=== PATIENT | male | born 1945 | race Caucasian/White ===

== ENCOUNTER 2018-04-06 12:56 | Outpatient (CLI) | payer SELFPAY ==
[~2018-04-06] VITALS: Ht 180.3 cm; Wt 87.7 kg
--- NOTE | ~2018-04-06 | HEMODYNAMI ---
PATIENT:ASHLEY NEVES MEDICAL RECORD: [id number] : 43 [id number] ADMISSION DATE: 04/06/18 Generatedon:04/06/201815:07 Patient name: ASHLEY NEVES Patient #: [id number] SSN: : Date of study: 04/06/2018 Page: Of Hemodynamic Procedure Report Patient Data Patient Demographics Procedure consent was obtained First Name: ASHLEY Gender: Male Last Name: PURA : 1945 Patient #: [id number] Age: 72 year(s) Race: Unknown Additional ID: [id number] Admission Admission Data Admission Date: 04/06/2018 Admission Time: 12:56 Admit Source: Emergency department Procedure Procedure Types Cath Procedure Diagnostic Procedure [facility] w/Coronaries PCI Procedure Coronary Stent Coronary Stent Initial Procedure Description Procedure Date Procedure Date: 04/06/2018 Procedure Start Time: 14:46 Procedure End Time: 15:01 Procedure Staff Name Function Oliverio Drake MD Performing Physician Lefty Gallo RT Monitor Edison Moyer RT Scrub Олег Clement RN Nurse Procedure Data Cath Procedure Fluoroscopy Diagnostic fluoroscopy Total fluoroscopy Time: 2.3 time: 2.3 min min Diagnostic fluoroscopy Total fluoroscopy dose: dose: 235.66 mGy 235.66 mGy Contrast Material Contrast Material Type Amount (ml) Isovue 300 72 Entry Location Entry Primary Successful Side Size Upsize Upsize Entry Closure Nicole ccessful Closure Location (Fr) 1 (Fr) 2 (Fr) Remarks Device Remarks Femoral Right 6 Fr Mechanical artery Short Compression Diagnostic catheters Device Type Used For End Catheter Placement DIAGNOSTIC [place] 110cm 5 LV Angiography Fr catheter ([id number]) Procedure Complications No complications Procedure Medications Medication Administration Route Dosage Oxygen etCO2 Nasal cannula 2 l/min Heparin Flush Bag added to field 2 bags (1000units/500ml NS) 0.9% NaCl I.V. 100 ml/hr Radial Cocktail added to field 1 syringe (Verapomil 2mg/Nitro 400mcg/Heparin 1500units) Fentanyl I.V. 50 mcg Versed I.V. 1 mg Radial Cocktail I.A. 1 syringe (Verapomil 2mg/Nitro 400mcg/Heparin 1500units) Benadryl I.V. 50 mg Fentanyl I.V. 50 mcg Versed I.V. 1 mg Heparin Bolus I.V. 4000 units Integrilin (Bolus I.V. 7.9 ml 2mg/ml) Integrilin (Bolus wasted 2.1 ml 2mg/ml) Hemodynamics Rest Heart Rate: 67 (bpm) Snapshots Pre Cath Intra NCS Post Cath Vital Signs Time Heart Resp SPO2 etCO2 NIBP (mmHg) Rhythm Pain Sedation Rate (ipm) (%) (mmHg) Status Level (bpm) 14:32:42 67 16 97 0 182/81(146) NSR 0 (11) 10(A) , No pain 14:37:06 66 16 96 0 176/85(139) NSR 0 (11) 10(A) , No pain 14:41:30 66 17 96 32.2 173/80(134) NSR 0 (11) 10(A) , No pain 14:45:56 65 17 97 30.7 164/78(144) NSR 0 (11) 9(A) , No pain 14:50:13 68 17 97 33 131/72(105) NSR 0 (11) 9(A) , No pain 14:54:31 66 16 88 0 136/68(116) NSR 0 (11) 9(A) , No pain 14:58:49 64 16 94 0.7 148/71(117) NSR 0 (11) 9(A) , No pain 15:02:28 63 17 92 0 134/73(111) NSR 0 (11) 9(A) , No pain Medications Time Medication Route Dose Verified Delivered Reason Not es Effectiveness by by 14:44:01 Oxygen etCO2 2 l/min Oliverio Denney Per physician Nasal Vidal Clement RN cannula 14:44:12 Heparin Flush added 2 bags Oliverio Denney used for Bag to Vidal Clement decorating supervisor (1000units/500ml field NS) 14:44:21 0.9% NaCl I.V. 100 Oliverio Denney Per physician ml/hr Vidal Clement RN 14:44:29 Radial Cocktail added 1 Oliverio Denney used for (Verapomil to syringe Vidal Clement RN procedure 2mg/Nitro field 400mcg/Heparin 1500units) 14:44:36 Fentanyl I.V. 50 mcg Oliverio Denney for sedation Vidal Clement RN 14:44:43 Versed I.V. 1 mg Oliverio Suarezy for sedation Vidal Clement RN 14:47:08 Radial Cocktail I.A. 1 Oliverio Duron for (Verapomil syringe Vidal Drake MD vasodilation 2mg/Nitro 400mcg/Heparin 1500units) 14:48:09 Benadryl I.V. 50 mg Oliverio Denney Per physician Vidal Clement RN 14:48:18 Fentanyl I.V. 50 mcg Oliverio Denney for sedation Vidal Clement RN 14:48:23 Versed I.V. 1 mg Oliverio Denney for sedation Vidal Clement RN 14:54:05 Heparin Bolus I.V. 4000 Oliverio Denney for units Vidal Clement RN anticoagulation 14:54:19 Integrilin I.V. 7.9 ml Oliverio Denney for (Bolus 2mg/ml) Vidal Clement RN antiplatelet therapy 14:55:47 Integrilin wasted 2.1 ml Oliverio Denney for (Bolus 2mg/ml) Vidal Clement RN antiplatelet therapy Procedure Log Time Note 13:47:46 Informed consent obtained and on chart 13:47:49 Admit Source: Emergency department 13:48:09 Diagnostic Cath status Elective 13:56:22 Lefty Suit RT(R) sent for patient. Start room use. 14:24:05 Patient received from ED to CCL 3 Alert and oriented. Tansferred to table in Supine position. 14:24:06 Warm blankets applied, and elenita hugger turned on for patient comfort. 14:24:07 Correct patient and procedure confirmed by team. 14:24:08 ECG and BP/O2 sat monitors applied to patient. 14:24:08 Pre-procedure instructions explained to patient. 14:24:09 Pre-op teaching completed and patient verbalized understanding. 14:24:11 Family in waiting room. 14:31:24 Vital chart was started 14:37:10 Baseline sample Acquired. 14:37:13 Rhythm: sinus rhythm 14:37:14 Full Disclosure recording started 14:37:18 Patient NPO since Breakfast. 14:37:27 Is the patient allergic to Iodine/contrast media? No. 14:37:34 Is patient on blood thinner?No 14:37:37 Patient diabetic? Yes. 14:37:44 ----Pre-sedation anethsthesia assessment.---- 14:37:46 Previous problem with sedation/anesthesia? No ? 14:37:48 Snore? Yes 14:37:49 Sleep apnea? Yes 14:37:50 Deviated septum? No 14:37:52 Opens mouth fully? Yes 14:37:54 Sticks out tongue? Yes 14:37:56 Airway obstruction? No ? 14:38:00 Dentures? No ? 14:38:02 Pre procedure: right dorsailis pedis pulse 2+ Normal; easily identifiable; not easily obliterated 14:38:06 Modified Aneudy's test Ulnar < 7 seconds 14:42:04 Patient pain scale 0/10 ?. 14:42:11 IV patent on arrival in left antecubital with 0.9% NaCl at 10ml/hr. 14:42:19 Lab results completed and on chart. 14:42:20 Lab results completed and on chart. 14:42:26 Right Radial & Right Groin area was prepped with chlora-prep and draped in sterile fashion 14:42:27 Alarms reviewed by R. N. 14:42:28 Sharps counted by scrub and verified by R.N. 14:42:49 --------ALL STOP TIME OUT------ 14:42:50 Final Timeout: patient, procedure, and site verified with staff and physician. All members of the team are in agreement. 14:42:52 Right Radial & Right Groin site verified by team. 14:42:55 Physical assessment completed. ASA score P 2 - A patient with mild systemic disease as per Oliverio Drake MD. 14:43:01 Sedation plan: IV Moderate Sedation Medication:Versed, Fentanyl 14:43:04 Use device set Radial Dx or PCI 14:43:05 ACIST Syringe (31507) opened to sterile field. 14:43:05 Medline Cath Pack ([id number]) opened to sterile field. 14:43:06 Bag Decanter (2002S) opened to sterile field. 14:43:06 DIAGNOSTIC WIRE .035 260cm J wire (032862) opened to sterile field. 14:43:06 ACIST Hand Control (49807) opened to sterile field. 14:43:07 ACIST Manifold (36434) opened to sterile field. 14:43:07 Tegaderm 4 x 4 (1626W) opened to sterile field. 14:43:08 MBrace Wrist Support (805278817) opened to sterile field. 14:43:09 NEEDLE Cook 21G 4cm Radial (Q28735) opened to sterile field. 14:43:11 TR BAND Standard (TSH67EUL) opened to sterile field. 14:43:13 SHEATH 6Fr Prelude Radial ([id number]) opened to sterile field. 14:44:01 Oxygen 2 l/min etCO2 Nasal cannula was administered by Олег Clement RN; Per physician; 14:44:12 Heparin Flush Bag (1000units/500ml NS) 2 bags added to field was administered by Олег Clement RN; used for procedure; 14:44:21 0.9% NaCl 100 ml/hr I.V. was administered by Олег Clement RN; Per physician; 14:44:29 Radial Cocktail (Verapomil 2mg/Nitro 400mcg/Heparin 1500units) 1 syringe added to field was administered by Олег Clement RN; used for procedure; 14:44:36 Fentanyl 50 mcg I.V. was administered by Олег Clement RN; for sedation; 14:44:43 Versed 1 mg I.V. was administered by Олег Clement RN; for sedation; 14:45:48 Procedure started. 14:46:21 Local anesthetic to right radial artery with Lidocaine 2% by Oliverio Drake MD.INITIAL ACCESS ONLY 14:46:30 A 6 Fr Short sheath was inserted into the Right Femoral artery 14:46:45 Zero performed for pressure channel P1 14:47:08 Radial Cocktail (Verapomil 2mg/Nitro 400mcg/Heparin 1500units) 1 syringe I.A. was administered by Oliverio Drake MD; for vasodilation; 14:48:00 A DIAGNOSTIC [place] 110cm 5 Fr catheter (344787) was advanced over the wire and used for LV Angiography. 14:48:01 LV angiography performed. 14:48:09 Benadryl 50 mg I.V. was administered by Олег Clement RN; Per physician; 14:48:13 LV gram done using PLASCENCIA 14:48:18 Fentanyl 50 mcg I.V. was administered by Олег Clement RN; for sedation; 14:48:23 Versed 1 mg I.V. was administered by Олег Clement RN; for sedation; 14:48:30 EF : 55 % 14:48:32 LCA angiography performed. 14:50:07 RCA angiography performed. 14:50:09 Catheter exchanged over wire. 14:51:47 GUIDE 6FR AR 1.0 catheter ([id number]) opened to sterile field. 14:51:48 INFLATOR Merit BasixCompak (UX7509) opened to sterile field. 14:52:41 6 Fr AR 1 guide catheter was inserted over the wire 14:52:45 CPTES wire advanced. 14:53:33 CHOICE PT Extra Support J 300cm guide wire ([id number]) opened to sterile field. 14:54:05 Heparin Bolus 4000 units I.V. was administered by Олег Clement RN; for anticoagulation; 14:54:19 Integrilin (Bolus 2mg/ml) 7.9 ml I.V. was administered by Олег Clement RN; for antiplatelet therapy; 14:54:34 Place stent Inflation Number: 1 A INTEGRITY OTW 2.75 X 22 stent ([id number]) was prepped and advanced across the Mid RCA. The stent was deployed at 17 MAYI for 0:14 (min:sec). 14:55:47 Integrilin (Bolus 2mg/ml) 2.1 ml wasted was administered by Олег Clement RN; for antiplatelet therapy; 14:57:05 Stent catheter was removed intact over wire. 14:57:06 Wire removed. 14:57:09 Guide catheter removed. 14:59:05 Sheath removed intact; hemostasis achieved with Mechanical Compression to the Right Femoral artery. 14:59:07 Procedure ended.(Physican Out) 14:59:30 Fluoroscopy time 02.30 minutes. 14:59:39 Fluoroscopy dose: 235.66 mGy 14:59:39 Flurop Dose total: 235.66 14:59:49 Contrast amount:Isovue 300 72ml. 14:59:50 Sharps counted by scrub and verified by R.N. 15:00:00 TR band inflated with 12cc of air. 15:00:14 Post left brachial artery:stable 15:00:19 Post procedure rhythm: sinus rhythm 15:00:21 Post procedure instruction explained to patient.Patient verbalizes understanding. 15:00:22 Procedure and supply charges have been captured, reviewed, submitted and are correct. 15:00:46 Procedure type changed to Cath procedure, Diagnostic procedure, LHC, LHC w/Coronaries, PCI procedure, Coronary Stent, Coronary Stent Initial 15:01:06 Procedure Complication : No complications 15:01:09 Vital chart was stopped 15:01:09 See physician's report for complete and final results. 15:01:12 Report given to Pre/Post Procedure Room. 15:01:15 Patient transfered to Pre/Post Procedure Room with Stretcher. 15:01:17 Procedure ended. 15:01:17 Full Disclosure recording stopped 15:01:20 End room use (Document Last) Intervention Summary Intervention Notes Time ActionType Lesion and Equipment Action# Pressure Duration Attributes Used 14:54:34 Place stent Mid RCA INTEGRITY 1 17 00:14 OTW 2.75 X 22 stent ([id number]) Device Usage Item Name Manufacture Quantity Catalog Number Hospital Part Current M inimal Lot# / Charge Number Stock Stock Serial# Code ACIST Syringe Acist 1 28644 240430 486429 276852 2 0 (19066) Medical Systems Inc Medline Cath Cardinal 1 [id number] 806410 07756 727467 5 Pack Health ([id number]) Bag Decanter Microtek 1 2001S 388594 19609 059620 5 (2001S) Medical Inc. DIAGNOSTIC WIRE St Oneal 1 005046 346602 327873 839609 3 0 .035 260cm J wire (588141) ACIST Hand Acist 1 72486 281044 899488 545351 5 Control (08138) [employer] Systems Inc ACIST Manifold Acist 1 69785 688641 030071 495785 5 (38841) Medical Systems Inc Tegaderm 4 x 4 3M 1 1626W 062108 282662 621878 5 (1626W) MBrace Wrist Advanced 1 140-0250-00 543232 53565 083384 5 Support Vascular ([id number]) Dynamics NEEDLE Cook 21G Cook Medical 1 A27365 797801 818071 800749 5 4cm Radial (L70118) TR BAND Terumo 1 WCH90-JPD 713341 422916 522217 4 0 Standard (BSG74XOF) SHEATH 6Fr Merit 1 [id number] 181838 243320 774506 5 Prelude Radial Medical ([id number]) DIAGNOSTIC Terumo 1 40-6444 621607 293941 582647 5 [place] 110cm 5 Fr catheter (886234) GUIDE 6FR AR Medtronic 1 [id number] 293767 30275 509494 1 1.0 catheter (XR5CA44) INFLATOR Merit Merit 1 ZA4364 764016 275908 157282 1 5 [facility] ([place]7177) CHOICE PT Extra [place] 1 [id number] 131020 235899 568359 5 Support J 300cm Scientific guide wire ([id number]) INTEGRITY OTW Medtronic 1 [id number] 465452 400644 6 [id number] 2.75 X 22 stent ([id number]) Signature Audit Hustler Stage Time Signature Unsigned Intra-Procedure 04/06/2018 Lefty Gallo RT(R) 3:07:45 PM Signatures Monitor : Lefty Gallo RT Signature : Date : Time : [id number] [place] [address]
--- NOTE | ~2018-04-06 | CN ---
PATIENT NAME:ASHLEY NEVES MEDICAL RECORD: [id number] : 43 LOCATION:[facility] ADMIT DATE: ACCOUNT: [id number] CONSULTING PHYSICIAN: CULLEN BREEN MD REFERRING PHYSICIAN: MARLEE KURTZ MD DATE OF CONSULTATION: 04/06/2018 DIAGNOSES: 1. Unstable angina. 2. Coronary artery disease. 3. Abnormal ECG. 4. Hypertension. 5. Insulin-dependent diabetes. 6. Gastroesophageal reflux disease. HISTORY OF PRESENT ILLNESS: This is a gentleman, who presents with increasing anginal symptomatology. His EKG has ST-T wave changes laterally. He does have a history of hypertension for which he is on multiple medications and a history of insulin-dependent diabetes. His chest pain has actually been present for approximately 2 years, but in a worsening fashion. PHYSICAL EXAMINATION: GENERAL APPEARANCE: Well-nourished, well-developed, appears stated age. Level of distress, comfortable. PSYCHIATRIC: Mental status, alert, normal affect. Orientation, oriented to time, place and person. EYES: Lids and conjunctiva, noninjected. No discharge, no pallor. ENT: Lips, teeth, gums, normal dentition. Oropharynx, no cyanosis, no pallor. NECK: Carotid arteries, bilateral normal upstroke, no bruits, no thrills. JUGULAR VEINS: No jugular venous pressure or distention. CERVICAL LYMPH NODES: Nontender, nonenlarged. THYROID: Not enlarged. Nontender. No nodules. LUNGS: Respiratory effort, unlabored. CHEST: Normal curvature. No thoracic deformity. No chest wall tenderness. Percussion, resonant. Auscultation, clear. No wheezes, no rales, no rhonchi. CARDIOVASCULAR: Precordial exam, nondisplaced. No heaves or pericardial thrills. Rate and rhythm, regular. Heart sounds, normal S1, normal S2. No S3, no gallop, no rub. Systolic murmur, not heard. Diastolic murmur, not heard. EXTREMITIES: No cyanosis, no edema. Peripheral pulses, full and equal in all extremities, except as noted. No bruits appreciated. ABDOMEN: Soft, nondistended. Normal aorta. No bruit. Nontender. No masses. Liver, nontender, no hepatomegaly. Spleen, nontender, no splenomegaly. MUSCULOSKELETAL: No joint tenderness. No joint swelling. No erythema. NEUROLOGICAL: Normal gait, normal strength, normal tone. SKIN: Warm and dry. OVERALL IMPRESSION: Increasing anginal symptomatology. We will proceed with coronary angiography. Further care depends upon the findings of the angiography. TRANSINT:[id number] Voice Confirmation ID: [id number] DOCUMENT ID: [id number] CONSULT REPORT [id number] ASHLEY NEVES JEFFREY MD at 1843 CC: [id number] DICTATION DATE: 04/06/18 1500 GROUND LAYER: 04/06/18 1519 [facility] [address] [id number]
--- NOTE | ~2018-04-06 | OP ---
PATIENT NAME: ASHLEY NEVES MEDICAL RECORD: [id number] :43 LOCATION:[facility] ADMISSION DATE: SURGEON: CULLEN BREEN MD DATE OF OPERATION: 04/06/2018 PROCEDURES: 1. PTCA stent RCA. 2. Left heart catheterization. 3. Selective coronary angiography. 4. Left ventriculogram. INDICATION: Unstable angina and coronary artery disease. PROCEDURE IN DETAIL: After informed consent was obtained and after a detailed description of the risks, benefits as well as alternative therapies, the patient elected to proceed with angiogram and angioplasty. The right femoral area was prepped and draped in normal sterile fashion. Right femoral artery was cannulated via modified Seldinger technique with placement of 6-Upper Sorbian sheath. All catheters exchanged through this sheath. FINDINGS: Left ventriculogram was performed in standard 30-degree PLASCENCIA view, reveals good cardiac wall motion throughout all segments. Overall ejection fraction estimated 60%. SELECTIVE CORONARY ANGIOGRAPHY: 1. Left main is with no significant angiographic disease. 2. Left anterior descending has moderate irregularities, but no flow-limiting stenosis. 3. The left circumflex has moderate irregularities, but no flow-limiting stenosis. 4. Right coronary artery has 90% stenosis in the mid vessel. PTCA STENT OF THE RIGHT CORONARY: The stent used was a 2.75 x 22 mm Integrity. Result was 0% residual stenosis. OVERALL IMPRESSION: Successful percutaneous transluminal coronary angioplasty stent of the right coronary artery going from 90% initial stenosis to 0% residual. TRANSINT:[id number] Voice Confirmation ID: [id number] DOCUMENT ID: [id number] CULLEN BREEN MD at 1843 CC: [id number] DICTATION DATE: 04/06/18 1502 DISPATCH CLERK: 04/06/18 [id number] [place] [address]
[2018-04-06 13:04] VITALS: Ht 180.3 cm; Wt 87.7 kg
[2018-04-06] MEDS ORDERED: ARTIFICIAL TEAR15 ML EACH EYE (13:07)
[2018-04-06] MEDS ORDERED: TENORMIN50 MG PO (13:08)
[2018-04-06] MEDS ORDERED: EFUDEX 5 % CREA40 GM TOPICAL (13:08)
[2018-04-06] MEDS ORDERED: NEURONTIN 300300 MG PO (13:09)
[2018-04-06] MEDS ORDERED: NOVOLIN R100 U/ML SQ ×3 (13:10→13:11)
[2018-04-06] MEDS ORDERED: PRINIVIL20 MG PO (13:12)
[2018-04-06] MEDS ORDERED: LEVEMIR100 U/M1 SQ (13:12)
[2018-04-06] MEDS ORDERED: ALAVERT10 MG/TAB PO (13:12)
[2018-04-06] MEDS ORDERED: OMEPRAZOLE20 M1 PO (13:13)
[2018-04-06] MEDS ORDERED: ROBAXIN500 MG PO (13:13)
[2018-04-06] MEDS ORDERED: OXYCODONE HCL5 MG PO (13:14)
[2018-04-06 13:31] LABS: BASOPHILS 0.2 % (0-2); EOSINOPHILS 1.4 % (0-7); HEMATOCRIT 43.8 % (42.0-54.0); HEMOGLOBIN 14.9 g/dL (13.5-17.5); IMMATURE GRANULOCYTES 0.3 % (0-5); LYMPHOCYTES 22.9 % (15-50); MCV 88.3 fL (80.0-100.0); MEAN PLATELET VOLUME 11.4 fL (7.4-10.4); MONOCYTES 6.3 % (2-11); NEUTROPHILS 68.9 % (40-80); PLATELET COUNT 126 10x3/uL (130-400); RBC 4.96 10x6/uL (4.20-6.10); WBC 5.8 10x3/uL (4.8-10.8)
[2018-04-06 13:43] LABS: ALBUMIN 3.5 g/dL (3.4-5.0); ALKALINE PHOSPHATASE 88 U/L (46-116); ALT (SGPT) 31 U/L (10-68); BILIRUBIN - TOTAL 0.79 mg/dL (0.2-1.3); CALC OSMOLALITY 280 mosm/kg (275-300); CALCIUM 8.6 mg/dL (8.5-10.1); CARBON DIOXIDE 24.6 mmol/L (21.0-32.0); CHLORIDE - SERUM 104 mmol/L (98-107); CREATININE - SERUM 1.3 mg/dL (0.6-1.3); GLUCOSE 168 mg/dL (74-106); POTASSIUM - SERUM 4.4 mmol/L (3.5-5.1); PROTEIN - SERUM 7.4 g/dL (6.4-8.2); SODIUM 138 mmol/L (136-145); UREA NITROGEN 15 mg/dL (7-18); eGFR NON AFRICAN AMERICAN 57 mL/min (90-120)
[2018-04-06 13:55] LABS: CKMB 9.5 U/L (0.0-3.6); CREATINE KINASE 253 UL (21-232); MAGNESIUM - SERUM 2.3 mg/dL (1.8-2.4)
[2018-04-06 13:56] LABS: TROPONIN-I < 0.017 ng/mL (0.000-0.060)
[2018-04-06 14:01] VITALS: BP 154/73
[2018-04-06] MEDS ORDERED: PLAVIX75 MG PO (15:36)
== END 2018-04-06 19:05 | disposition home or self-care (01) ==
LOC: D.ER 12:56 → D.CLR 12:56 → D.ER 15:08 → D.CLR 19:05
PROVIDERS: Family Medicine
DX: R07.9 Chest pain, unspecified (principal)